=== PATIENT | female | born 1985 | race African-American/Black ===

== ENCOUNTER 2017-06-19 18:21 | Emergency (ER) | payer SELFPAY ==
[~2017-06-19] VITALS: Ht 165.1 cm; Wt 63.5 kg
[2017-06-19 18:24] VITALS: BP 130/88
[2017-06-19] MEDS ORDERED: Birth control (18:27)
[2017-06-19] MEDS ORDERED: Azithromycin 250mg tab ORAL ONE (19:00)
[2017-06-19] MEDS ORDERED: Lidocaine 1% MPF 10mg/ml 5ml IM ONE (19:00)
[2017-06-19 19:28] LABS: KETONES,URINE NEGATIVE (NEGATIVE); LEUKOCYTE ESTERASE ,URINE 2+ (NEGATIVE); NITRITE,URINE NEGATIVE (NEGATIVE); PH,URINE 7 (4.5-8.0); PROTEIN,URINE NEGATIVE (NEGATIVE); UROBILINOGEN,URINE 1 MG/DL (0.0-1.0)
[2017-06-19 19:39] LABS: APPEARANCE,URINE SLIGHTLY CLOUDY
[2017-06-19 19:44] LABS: BACTERIA,URINE FEW /HPF; SQUAMOUS EPITHELIAL CELL,UR MODERATE /LPF (NONE/OCC); WBC,URINE 0-2 /HPF (0 - 2)
[2017-06-19 19:50] VITALS: BP 138/81
--- NOTE | 2017-06-19 21:17 | Emergency Room Report ---
History of Present Illness General Chief Complaint: General Complaint Source: Patient Present Illness [facility] The patient is a 32-year-old female presenting after exposure to Chlamydia. She states that her male partner was tested with a positive result and was treated for Chlamydia today. She denies any symptoms herself including nausea, vomiting, fever, chills, abdominal pain, vaginal pain, dysuria, hematuria, increased urinary frequency, vaginal discharge Allergies: Coded Allergies: No Known Allergies (Unverified , 06/19/17) Patient History Past Medical History: see triage record Pertinent Family History: none Last Menstrual Period: 05/24/17 Now: No Reviewed Nursing Documentation: PMH: Agreed, PSxH: Agreed Nursing Documentation-PMH Hx Neurological Problems: Yes - Migraines Review of Systems All Other Systems: negative except mentioned in HPI Physical Exam Vital Signs Date Time Temp Pulse Resp B/P Pulse Ox O2 Delivery O2 Flow Rate FiO2 06/19/17 18:24 99.0 84 16 130/88 99 Room Air Sp02 EP Interpretation: reviewed, normal General Appearance: no apparent distress, alert, GCS 15, non-toxic Head: normocephalic, atraumatic Eyes: bilateral eye PERRL, bilateral eye normal inspection Gastrointestinal: normal bowel sounds, non tender, soft, non-distended, no guarding, no rebound Genitourinary: normal inspection, no CVA tenderness Musculoskeletal: back normal, gait/station normal, normal range of motion, non- tender Neurologic: alert, oriented x3, responsive, motor strength/tone normal, sensory intact, speech normal Psychiatric: judgement/insight normal, memory normal, mood/affect normal, no suicidal/homicidal ideation Skin: normal color, no rash, warm/dry, well hydrated Medical Decision Making PA Attestation Dr. Grider is my supervising physician. Patient management was discussed with my supervising physician Diagnostic Impression: Primary Impression: Exposure to STD ER Course The patient is a 32-year-old female presenting after exposure to Chlamydia Differential diagnoses considered but not limited to: Gonorrhea, Chlamydia, herpes, urinary tract infection, among others Physical exam is unremarkable. Urinalysis is not consistent with infection The patient will be treated with azithromycin and Rocephin as precaution as she was exposed to chlamydia. She will follow up with primary doctor and obtain STD test with her partner within the next month. ER precautions given Laboratory Tests Test 06/19/17 18:55 Urine Color Yellow Urine Appearance Slightly cloudy Urine pH 7 (4.5-8.0) Urine Specific [place] 1.015 (1.005-1.035) Urine Protein Negative (NEGATIVE) Urine Glucose (UA) Negative (NEGATIVE) Urine Ketones Negative (NEGATIVE) Urine Occult Blood Negative (NEGATIVE) Urine Nitrite Negative (NEGATIVE) Urine Bilirubin Negative (NEGATIVE) Urine Urobilinogen 1 MG/DL (0.0-1.0) H Urine Leukocyte Esterase 2+ (NEGATIVE) H Urine RBC 2-4 /HPF (0 - 2) H Urine WBC 0-2 /HPF (0 - 2) Urine Squamous Epithelial Cells Moderate /LPF (NONE/OCC) H Urine Bacteria Few /HPF (NONE) Urine HCG, Qualitative Negative Lab Results Impression not consistent with infection Last Vital Signs Date Time Temp Pulse Resp B/P Pulse Ox O2 Delivery O2 Flow Rate FiO2 06/19/17 19:50 98.8 87 14 138/81 100 Room Air Status: improved Disposition: HOME, SELF-CARE Condition: Improved Patient Instructions: Safe Sex Additional Instructions: I discussed my findings with the patient. All questions and concerns have been answered. Treatment and medication compliance have been addressed. I advised the patient that they need to follow up with PMD in 3-5 days. Return to ED if symptoms worsen, new symptoms arise, or if needed for any reason. Patient verbalized understanding of discharge instructions. ROGELIO PRYOR Jun 19, 2017 21:17
== END 2017-06-19 19:50 | disposition home or self-care (01) ==
LOC: EMR 18:38
DX: Z20.2 Contact with and (suspected) exposure to infections with a predominantly sexual mode of transmission (principal)
CPT/HCPCS: 81003; 81025; 96372; 99284; J0696